=== PATIENT | male | born 1930 | race African-American/Black ===

== ENCOUNTER 2016-04-05 09:05 | Observation (INO) | payer MEDICARE, OTHER ==
[~2016-04-05] VITALS: Ht 170.2 cm; Wt 75.0 kg
[2016-04-05] VITALS (9 sets, daily range): BP systolic 127–146; BP diastolic 64–74; PULSE 49–60; RESP 17–18; TEMP 97.7–98.1; O2SAT 96–99
[~2016-04-05 09:05] MED LIST: ASPI81TA21 PO; ATOR20TA42 PO; CLOP75 PO; COLE5GRA PO; COZA100T PO; DORZ1SOL2 OU; ISOS30TA3 PO; LEVO.075 PO; METO50CR PO; PROC90TA PO; PROT40TA PO; RANO500 PO; REST0.05 EACH EYE
[2016-04-05] MEDS ORDERED: SODIUM CHLORIDE 0.9% FLUSH 5 ML FLUSH IVF PRN ×2 (09:30→12:15)
[2016-04-05] MEDS ORDERED: ASPIRIN 81 MG CHEW TAB PO ONE (09:30)
[2016-04-05] MEDS ORDERED: NIFE90TA2 PO (09:50)
[2016-04-05] MEDS ORDERED: ATOR20TA15 PO (09:50)
[2016-04-05] MEDS ORDERED: L-THPOW (09:50)
[2016-04-05] MEDS ORDERED: DORZ1SOL2 EACH EYE (09:50)
[2016-04-05] MEDS ORDERED: METO50TA PO (09:50)
[2016-04-05] MEDS ORDERED: ISOS30TA3 PO (09:50)
[2016-04-05] MEDS ORDERED: PLAV75TA29 PO (09:50)
[2016-04-05] MEDS ORDERED: LOSA100T PO (09:50)
[2016-04-05] MEDS ORDERED: LEVO75TA3 PO (09:50)
[2016-04-05] MEDS ORDERED: RANO500 PO (09:50)
[2016-04-05] MEDS ORDERED: REST0.05 EACH EYE (09:50)
[2016-04-05] MEDS ORDERED: PANT40TA3 PO (09:50)
[2016-04-05] MEDS ORDERED: ASPIRIN 81 MG CHEW TAB CHEW ONE ×2 (10:00→10:11)
--- NOTE | 2016-04-05 10:04 | RADRPT ---
EXAM DATE/TIME: 04/05/2016 09:42 [place] COMPARISON: CHEST SINGLE AP, August 29, 2015, 22:15. INDICATIONS : Left side chest pain. MEDICAL HISTORY : None. SURGICAL HISTORY : Pacemaker. ENCOUNTER: Initial ACUITY: 1 day PAIN SCORE: 5/10 LOCATION: Left chest FINDINGS: Portable AP view of the chest demonstrates a normal-sized cardiac silhouette. Left chest wall cardiac pacing device is present. Lungs are underinflated and there is atelectasis at the left lung base. No effusion, consolidation, or pneumothorax is seen. The bones and soft tissues demonstrate no acute fi nding. CONCLUSION: Mild underinflation with atelectasis at the left lung base. No acute finding is identified. Daniel Bower MD on April 05, 2016 at 10:02 Board Certified Radiologist. This report was verified electronically.
[2016-04-05 10:36] LABS: AUTOMATED NEUTROPHIL # 3.3 TH/MM3 (1.8-7.7); BASOPHIL % 0.8 % (0.0-2.0); EOSINOPHIL # 0.2 TH/MM3 (0-0.4); EOSINOPHIL % 3.4 % (0.0-4.0); HEMATOCRIT 37.4 % (39.0-51.0); HEMO FLAGS DIFF FINAL; LYMPH % 15.3 % (9.0-44.0); LYMPHOCYTE # 0.7 TH/MM3 (1.0-4.8); MEAN CELL VOLUME 89.7 FL (80.0-100.0); MEAN CORPUSCULAR HEMOGLOBIN 29.6 PG (27.0-34.0); MONO % 10.4 % (0.0-8.0); NEUT % 70.1 % (16.0-70.0); PLATELET COUNT 240 TH/MM3 (150-450); RED BLOOD COUNT 4.17 MIL/MM3 (4.50-5.90); RED CELL DISTRIBUTION WIDTH 15.3 % (11.6-17.2); WHITE BLOOD COUNT 4.7 TH/MM3 (4.0-11.0)
[2016-04-05 10:46] LABS: PROTHROMBIN TIME - PATIENT 11.5 SEC (9.8-11.6)
[2016-04-05 10:47] LABS: APTT (PATIENT) 28.9 SEC (24.3-30.1)
[2016-04-05 10:55] LABS: ALT (GPT) 26 U/L (12-78); ANION GAP 8 MEQ/L (5-15); AST (GOT) 27 U/L (15-37); BICARBONATE 23.3 MEQ/L (21.0-32.0); BLOOD UREA NITROGEN 20 MG/DL (7-18); CHLORIDE 106 MEQ/L (98-107); GLOMERULAR FILTRATION RATE 49 ML/MIN (>89); SODIUM (NA) 137 MEQ/L (136-145)
[2016-04-05 11:01] LABS: ALKALINE PHOSPHATASE 142 U/L (45-117); CREATINE KINASE 153 U/L (39-308); TOTAL BILIRUBIN ADULT 0.4 MG/DL (0.2-1.0)
[2016-04-05 11:13] LABS: CKMB 0.8 NG/ML (0.5-3.6)
[2016-04-05] MEDS ORDERED: PANTOPRAZOLE SOD 40 MG DELAYED RELEASE TAB PO SCH (12:15)
[2016-04-05] MEDS ORDERED: ACETAMINOPHEN 500 MG CPLT PO PRN (12:15)
[2016-04-05] MEDS ORDERED: ACETAMINOPHEN/HYDROcodone 325 MG/7.5 MG TAB PO PRN (12:15)
[2016-04-05] MEDS ORDERED: ONDANSETRON HCL 4 MG/2 ML VIAL IV PRN (12:15)
--- NOTE | 2016-04-05 13:25 | PD ---
HPI Chief Complaint: Chest Pain Time Seen by Provider: 09:49 Travel History International Travel<30 days: No Contact w/Intl Traveler<30days: No Traveled to known affect area: No History of Present Illness HPI Patient 85-year-old male presents with left-sided chest pain versus last night. Patient states he's been having this pain on and is followed by Dr. Pantoja. He states he had a stress test over a year ago which apparently was negative. Patient states he has been having minimal shortness of breath and the pain is at its worst but no nausea or vomiting. He does have a history of high blood pressure and high cholesterol. Denies history of diabetes. Patient states he does have a pacemaker in place because he has a history of symptomatically bradycardia. No history of having stents placed or coronary disease. PFSH Past Medical History Hx Anticoagulant Therapy: Yes (aspirin) Arthritis: Yes (FEET) Autoimmune Disease: No Heart Rhythm Problems: Yes (BRADYCARDIA) Cancer: No Cardiac Catheterization: No Cardiovascular Problems: Yes (pacekamker) High Cholesterol: No Congestive Heart Failure: No Diabetes: No Endocrine: Yes Gastrointestinal Disorders: No GERD: Yes Genitourinary: Yes (PT STATES HE HAS "WEAK KIDNEYS") Hypertension: Yes Immune Disorder: No Implanted Vascular Access Dvce: Yes Musculoskeletal: Yes Neurologic: No Psychiatric: No Reproductive: No Respiratory: No Immunizations Current: Yes Sickle Cell Disease: No Thyroid Disease: Yes (HYPO) Past Surgical History Abdominal Surgery: Yes (INGUINAL HERNIA REPAIR-KIRAN) Body Medical Devices: PACE MAKER Cardiac Surgery: No Coronary Artery Bypass Graft: No Ear Surgery: No Endocrine Surgery: No Eye Surgery: No Genitourinary Surgery: Yes (TURP 1994) Oral Surgery: Yes (TEETH PULLED UPPER) Pacemaker: Yes ([employer] [id number] SERIAL#[id number] IMPLANTED 11 NOV 2010) Prostatectomy: Yes (TURP) Thoracic Surgery: No Other Surgery: Yes Social History Alcohol Use: No Tobacco Use: No Substance Use: No Allergies-Medications (Allergen,Severity, Reaction): Coded Allergies: No Known Allergies (Verified , 04/05/16) Reported Meds & Prescriptions Reported Meds & Active Scripts Active Reported Restasis Opth Drops (Cyclosporine Opth Drops) 0.05% Emul 1 Drop EACH EYE BID Cosopt Opth Drops (Dorzolamide-Timolol Opth Drops) 22.3-6.8 Mg/Ml Soln 1 Drop EACH EYE BID Atorvastatin (Atorvastatin Calcium) 20 Mg Tab 20 Mg PO HS Pantoprazole (Pantoprazole Sodium) 40 Mg Tab 40 Mg PO DAILY Nifedipine ER (Nifedipine) 90 Mg Tab 90 Mg PO DAILY Metoprolol Tartrate 50 Mg Tab 50 Mg PO BID Losartan (Losartan Potassium) 100 Mg Tab 100 Mg PO DAILY Isosorbide Mononitrate ER (Isosorbide Mononitrate) 30 Mg Rickey 30 Mg PO DAILY Levothyroxine (Levothyroxine Sodium) 75 Mcg Tab 75 Mcg PO DAILY Plavix (Clopidogrel Bisulfate) 75 Mg Tab 75 Mg PO DAILY Ranexa ER 12 HR (Ranolazine) 500 Mg Tab 500 Mg PO BID Review of Systems Except as stated in HPI: all other systems reviewed are Neg Physical Exam Narrative GENERAL: Well-developed well-nourished in no apparent distress, quite pleasant demeanor. SKIN: Warm and dry. HEAD: Atraumatic. Normocephalic. EYES: Pupils equal and round. No scleral icterus. No injection or drainage. ENT: No nasal bleeding or discharge. Mucous membranes pink and moist. NECK: Trachea midline. No JVD. CARDIOVASCULAR: Regular rate and rhythm. No murmur appreciated. 2+ bilateral equal pulses in all 4 extremities. RESPIRATORY: No accessory muscle use. Clear to auscultation. Breath sounds equal bilaterally. GASTROINTESTINAL: Abdomen soft, non-tender, nondistended. Hepatic and splenic margins not palpable. MUSCULOSKELETAL: No obvious deformities. No clubbing. No cyanosis. No edema. NEUROLOGICAL: Awake and alert. No obvious cranial nerve deficits. Motor grossly within normal limits. Normal speech. PSYCHIATRIC: Appropriate mood and affect; insight and judgment normal. Data Data Last Documented VS Vital Signs Date Time Temp Pulse Resp B/P Pulse Ox O2 Delivery O2 Flow Rate FiO2 04/05/16 09:52 50 146/74 04/05/16 09:52 99 Room Air Orders Electrocardiogram (04/05/16 ) B-Type Natriuretic Peptide (04/05/16 09:21) Ckmb (Isoenzyme) Profile (04/05/16 09:21) Complete Blood Count With Diff (04/05/16 09:21) Comprehensive Metabolic Panel (04/05/16 09:21) Magnesium (Mg) (04/05/16 09:21) Prothrombin Time / Inr (Pt) (04/05/16 09:21) Act Partial Throm Time (Ptt) (04/05/16 09:21) Troponin I (04/05/16 09:21) Chest, Single Ap (04/05/16 09:21) Ecg Monitoring (04/05/16 09:21) Bilateral Bp Monitoring (04/05/16 09:21) Iv Access Insert/Monitor (04/05/16 09:21) Oximetry (04/05/16 09:21) Oxygen Administration (04/05/16 09:21) Aspirin Chew (Aspirin Chew) (04/05/16 09:30) Sodium Chloride 0.9% Flush (Ns Flush) (04/05/16 09:30) Aspirin Chew (Aspirin Chew) (04/05/16 10:00) Aspirin Chew (Aspirin Chew) (04/06/16 09:00) Aspirin Chew (Aspirin Chew) (04/05/16 10:11) CKMB (04/05/16 09:50) CKMB% (04/05/16 09:50) Admit Order (Ed Use Only) (04/05/16 ) Labs Laboratory Tests Test 04/05/16 09:50 White Blood Count 4.7 TH/MM3 Red Blood Count 4.17 MIL/MM3 Hemoglobin 12.4 GM/DL Hematocrit 37.4 % Mean Corpuscular Volume 89.7 FL Mean Corpuscular Hemoglobin 29.6 PG Mean Corpuscular Hemoglobin 33.0 % Concent Red Cell Distribution Width 15.3 % Platelet Count 240 TH/MM3 Mean Platelet Volume 8.5 FL Neutrophils (%) (Auto) 70.1 % Lymphocytes (%) (Auto) 15.3 % Monocytes (%) (Auto) 10.4 % Eosinophils (%) (Auto) 3.4 % Basophils (%) (Auto) 0.8 % Neutrophils # (Auto) 3.3 TH/MM3 Lymphocytes # (Auto) 0.7 TH/MM3 Monocytes # (Auto) 0.5 TH/MM3 Eosinophils # (Auto) 0.2 TH/MM3 Basophils # (Auto) 0.0 TH/MM3 CBC Comment DIFF FINAL Differential Comment Prothrombin Time 11.5 SEC Prothromb Time International 1.0 RATIO Ratio Activated Partial 28.9 SEC Thromboplast Time Sodium Level 137 MEQ/L Potassium Level 4.0 MEQ/L Chloride Level 106 MEQ/L Carbon Dioxide Level 23.3 MEQ/L Anion Gap 8 MEQ/L Blood Urea Nitrogen 20 MG/DL Creatinine 1.61 MG/DL Estimat Glomerular Filtration 49 ML/MIN Rate Random Glucose 118 MG/DL Calcium Level 9.0 MG/DL Magnesium Level 2.0 MG/DL Total Bilirubin 0.4 MG/DL Aspartate Amino Transf 27 U/L (AST/SGOT) Alanine Aminotransferase 26 U/L (ALT/SGPT) Alkaline Phosphatase 142 U/L Total Creatine Kinase 153 U/L Creatine Kinase MB 0.8 NG/ML Troponin I LESS THAN 0.02 NG/ML B-Type Natriuretic Peptide 74 PG/ML Total Protein 8.1 GM/DL Albumin 3.9 GM/DL MDM Medical Decision Making Medical Screen Exam Complete: Yes Emergency Medical Condition: Yes Interpretation(s) EKG is ventricular paced rhythm. Differential Diagnosis ACS, LA, GERD, chest wall pain, dissection highly unlikely. Narrative Course Patient room number spell, by arrival into the emergency department he is not currently having any more chest pain. He did take a baby aspirin this morning and we have run at up to a full dose aspirin. Patient's chest x-ray shows no acute cardio pulmonary abnormality, troponin negative, EKG shows a ventricular paced rhythm. Discussed with the patient needs to consider having further workup including a stress test as he has not had one in some time. He is agreeable to this course of action. We'll be placing the chest pain center. Diagnosis Primary Impression: Chest pain Qualified Code: R07.9 - Chest pain, unspecified type Admitting Information Admitting Physician Requests: Observation Condition: Stable Miguel Ortega MD Apr 05, 2016 13:25
--- NOTE | 2016-04-05 14:30 | EKG ---
Date Performed: 04/05/2016 Time Performed: 09:19:02 PTAGE: 85 years EKG: ELECTRONIC VENTRICULAR PACEMAKER ABNORMAL RHYTHM ECG PREVIOUS TRACING : 02/24/2016 11.28 DOCTOR: Gabriele Mensah Interpretating Date/Time 04/05/2016 14:30:11
--- NOTE | 2016-04-05 14:40 | EKG ---
Date Performed: 04/05/2016 Time Performed: 12:58:01 PTAGE: 85 years EKG: ELECTRONIC VENTRICULAR PACEMAKER ABNORMAL RHYTHM ECG PREVIOUS TRACING : 08/30/2015 04.50 DOCTOR: Gabriele Mensah Interpretating Date/Time 04/05/2016 14:38:57
[2016-04-05 14:46] LABS: CREATINE KINASE 130 U/L (39-308)
[2016-04-05 15:19] LABS: CKMB 0.8 NG/ML (0.5-3.6)
--- NOTE | 2016-04-05 16:23 | HHI.DCPOC ---
Discharge Care Plan Diagnosis: (1) Chest pain (2) Pacemaker (3) HTN (hypertension) (4) HLD (hyperlipidemia) (5) GERD (gastroesophageal reflux disease) (6) Hypothyroidism (7) CKD (chronic kidney disease), stage II Goals to Promote Your Health * To prevent worsening of your condition and complications * To maintain your health at the optimal level Directions to Meet Your Goals Take your medications as prescribed Follow your dietary instruction Follow activity as directed Keep your appointments as scheduled Take your immunizations and boosters as scheduled If your symptoms worsen call your PCP, if no PCP go to Urgent Care Center or Emergency Room Smoking is Dangerous to Your Health. Avoid second hand smoke Call the 24-hour hour crisis hotline for domestic abuse at [facility] Apr 05, 2016 16:23
[2016-04-05 17:18] LABS: CREATINE KINASE 120 U/L (39-308)
[2016-04-05 17:34] LABS: CKMB 0.8 NG/ML (0.5-3.6)
[2016-04-05] MEDS ORDERED: ATORVASTATIN 20 MG TAB PO SCH (21:00)
[2016-04-05] MEDS ORDERED: METOPROLOL TARTRATE 50 MG TAB PO SCH (21:00)
[2016-04-05] MEDS ORDERED: RANOLAZINE 500 MG EXTENDED RELEASE TAB PO SCH (21:00)
[2016-04-05] MEDS ORDERED: SODIUM CHLORIDE 0.9% FLUSH 5 ML FLUSH IVF SCH (21:00)
[2016-04-06] MEDS ORDERED: LEVOTHYROXINE SODIUM 75 MCG TAB PO SCH (06:00)
[2016-04-06] MEDS ORDERED: ISOSORBIDE MONONITRATE 30 MG TAB PO SCH (07:00)
[2016-04-06] MEDS ORDERED: NIFEdipine 90 MG SUSTAINED RELEASE TAB PO SCH (09:00)
[2016-04-06] MEDS ORDERED: LOSARTAN 50 MG TAB PO SCH (09:00)
[2016-04-06] MEDS ORDERED: ASPIRIN 325 MG TAB PO SCH (09:00)
[2016-04-06] MEDS ORDERED: CLOPIDOGREL 75 MG TAB PO SCH (09:00)
[2016-04-06] MEDS ORDERED: ASPIRIN 81 MG CHEW TAB CHEW SCH (09:00)
--- NOTE | 2016-04-06 09:34 | MH ---
cc: GABRIELE MICHELLE DATE OF ADMISSION: 04/05/2016 CHIEF COMPLAINT: Chest pain HISTORY OF PRESENT ILLNESS This is an 85-year-old male who presents to the emergency department via private vehicle with his with a complaint of two days of intermittent left-sided chest discomfort. He describes it as a sharp discomfort. It lasts for a minute or less. This happens a few times each day. He found nothing to bring on the discomfort. He has had no associated shortness of breath, nausea or diaphoresis. He has states that he has had a pacemaker since 2010 and had it recently interrogated by Dr. Erickson's office three weeks ago and it was okay. He believes the last stress test was last year but does not know the results. Denies any recent illnesses. Denies any recent travel. PAST MEDICAL HISTORY: 1. Hypertension. 2. Hyperlipidemia. 3. Supraventricular tachycardia. 4. Symptomatic bradycardia with pacemaker inserted in 2010. 5. Benign prostate hypertrophy with history of TURP. 6. Hypothyroidism. 7. Chronic kidney disease. 8. Gastroesophageal reflux disease (GERD). 9. Arthritis. 10. Denies any knowledge of coronary artery disease. He states he cannot recall ever having a heart catheterization. FAMILY HISTORY: History of coronary artery disease. SOCIAL HISTORY: Does not smoke, drink alcohol or use illicit drugs. PAST SURGICAL HISTORY: Noncontributory. ALLERGIES: NO KNOWN DRUG ALLERGIES. MEDICATIONS: Medications include: 1. Losartan. 2. Restasis. 3. Metoprolol. 4. Cosopt ophthalmic eye drops. 5. Ranexa. 6. Nifedipine. 7. Atorvastatin. 8. Isosorbide. 9. Plavix. 10. Protonix. 11. Levothyroxine. REVIEW OF SYSTEMS: GENERAL: Denies fevers or chills. Denies recent illnesses. HEAD, EYES, EARS, NOSE, THROAT: Denies headache, earache, sore throat, difficulty swallowing. CARDIOVASCULAR: Describes the discomfort as mentioned above. Denies diaphoresis. Denies sensation of heart beating rapidly or irregularly. Denies syncope. RESPIRATORY: Denies shortness of breath or inspirational chest discomfort. Denies coughing, wheezing or hemoptysis. GI: Denies nausea, vomiting, diarrhea, abdominal pain or blood in the stool. MUSCULOSKELETAL: Denies joint pain or edema. Denies calf pain or edema. NEUROVASCULAR: Denies headache or dizziness. ENDOCRINE: Denies polyuria or polydipsia. HEMATOLOGIC: Denies easy bruising. SKIN: Denies rash or itching. PHYSICAL EXAMINATION: VITAL SIGNS: The vital signs in the emergency department initially included a blood pressure of 146/74, heart rate 50, pulse oximetry 99% on room air. I will have more vitals taken at this time. HEAD, EYES, EARS, NOSE, THROAT: Head is atraumatic and normocephalic. NECK: Neck is supple without lymphadenopathy. Trachea is midline. No JVD or carotid bruit. CARDIOVASCULAR: Regular rate and rhythm without murmur, gallop or rub. RESPIRATORY: The lungs are clear to auscultation bilaterally. No wheezing, rales or rhonchi. There is no reproducible chest wall discomfort. No use of accessory muscles. GI: Abdomen is nontender and nondistended and bowel sounds are normal. No guarding or rebound. No obvious pulsatile mass or bruit. No CVA tenderness. Strong femoral pulses bilaterally. MUSCULOSKELETAL: The patient is moving upper and lower extremities freely. No joint tenderness or edema. No calf tenderness or edema. No Homans' sign. Strong pulses in upper and lower extremities. NEUROVASCULAR: The patient is alert and oriented. Cranial nerves II through XII are grossly intact. No focal deficits and speech is clear. SKIN: No rashes and turgor is normal. LABS: CBC is unremarkable. Coagulation studies are unremarkable. Complete metabolic panel has a BUN elevated at 20, creatinine elevated at 1.61, GFR decreased at 49, glucose elevated mildly at 118. Alkaline phosphatase is elevated at 142, otherwise unremarkable comprehensive metabolic panel. First set of cardiac enzymes is normal. BNP is normal at 74. IMAGING STUDIES: Single-view chest x-ray read by the radiologist as: "Mild under- inflation with atelectasis at the left lung base. No acute findings. A pacemaker is in place. EKGS: The initial EKG is ventricular paced. ASSESSMENT AND PLAN: 1. Chest pain. The discomfort does appear to be atypical. He will have serial cardiac enzymes and EKGs for ruling out purpose. He will be seen by Dr. Michelle in the chest pain center. At this time, the patient does not want to have any further imaging or cardiac testing other than labs obtained. He states he would rather follow with Dr. Erickson and states he wants him to be stress tested. So if his troponins were to stay normal, he would likely be discharged home later this afternoon or early this evening with instructions follow back with Dr. Erickson but with instructions also to return if his symptoms were to recur. 2. Hypertension. Continue current medications. 3. Hyperlipidemia. Continue current medications. 4. Pacemaker. The patient will continue to follow up with Dr. Erickson. He recently had it interrogated three weeks ago and it was okay. 5. Benign prostate hypertrophy. Continue current medications. 6. Hypothyroidism. Continue current medications. 7. Chronic kidney disease. Continue to follow up with his physician. 8. Gastroesophageal reflux disease (GERD). Continue his Protonix. The patient is stable at this time. He is agreeable with this plan. Dictated by [facility] PA-C. Gabriele Michelle MD [facility]/MER /12:23 PM /9:33 AM
--- NOTE | 2016-04-06 12:10 | EKG ---
Date Performed: 04/05/2016 Time Performed: 15:36:04 PTAGE: 85 years EKG: ELECTRONIC VENTRICULAR PACEMAKER ABNORMAL RHYTHM ECG PREVIOUS TRACING : 04/05/2016 12.58 Since previous tracing, no significant change noted DOCTOR: Edgar Garcia Interpretating Date/Time 04/06/2016 12:09:18
== END 2016-04-05 18:52 | disposition home or self-care (01) ==
LOC: NEPA 09:05 → NEDA 11:47 → NEPHCDU 14:29
PROVIDERS: ADMIT Family Medicine; ATTEND Family Medicine
DX: R07.9 Chest pain, unspecified (principal); I12.9 Hypertensive chronic kidney disease with stage 1 through stage 4 chronic kidney disease, or unspecified chronic kidney disease; N18.9 Chronic kidney disease, unspecified; E78.5 Hyperlipidemia, unspecified; R94.31 Abnormal electrocardiogram [ECG] [EKG]; E03.9 Hypothyroidism, unspecified; K21.9 Gastro-esophageal reflux disease without esophagitis; E78.00 Pure hypercholesterolemia, unspecified; M19.90 Unspecified osteoarthritis, unspecified site; Z95.0 Presence of cardiac pacemaker
CPT/HCPCS: 71010; 80053; 82550; 82552; 83735; 83880; 84443; 84484; 85025; 85610; 85730; 93005; 99285; G0378

== ENCOUNTER 2016-05-15 18:39 | Emergency (ER) | payer MEDICARE, OTHER ==
[~2016-05-15] VITALS: Ht 170.2 cm; Wt 75.0 kg
[~2016-05-15 18:39] MED LIST changes: -ASPI81TA21 PO; +ATOR20TA15 PO; -ATOR20TA42 PO; -CLOP75 PO; -COLE5GRA PO; -COZA100T PO; +DORZ1SOL2 EACH EYE; -DORZ1SOL2 OU; -LEVO.075 PO; +LEVO75TA3 PO; +LOSA100T PO; -METO50CR PO; +METO50TA PO; +NIFE90TA2 PO; +PANT40TA3 PO; +PLAV75TA29 PO; -PROC90TA PO; -PROT40TA PO
[2016-05-15 18:41] VITALS: BP 150/78; PULSE 66; RESP 16; TEMP 98; O2SAT 97
--- NOTE | 2016-05-15 20:55 | PD ---
HPI Chief Complaint: Laceration/Skin Injury Time Seen by Provider: 20:53 Travel History International Travel<30 days: No Contact w/Intl Traveler<30days: No Traveled to known affect area: No History of Present Illness HPI 86-year-old black male presents emergency Department with a small skin laceration to the tip of his right thumb which occurred when he was cutting his toenails with apparent scissors. He has had some persistent bleeding and he was concerned because he was on blood thinners. He denies any numbness, tingling or weakness. Pain is mild. PFSH Past Medical History Hx Anticoagulant Therapy: Yes (aspirin) Arthritis: Yes (FEET) Autoimmune Disease: No Heart Rhythm Problems: Yes (BRADYCARDIA) Cancer: No Cardiac Catheterization: No Cardiovascular Problems: Yes (PACEMAKER) High Cholesterol: No Congestive Heart Failure: No Diabetes: No Diminished Hearing: No Endocrine: Yes Gastrointestinal Disorders: No GERD: Yes Genitourinary: Yes Hypertension: Yes Immune Disorder: No Implanted Vascular Access Dvce: Yes Musculoskeletal: Yes Neurologic: No Psychiatric: No Reproductive: No Respiratory: No Immunizations Current: Yes Sickle Cell Disease: No Thyroid Disease: Yes (HYPO) Tetanus Vaccination: > 5 Years Past Surgical History Abdominal Surgery: Yes (INGUINAL HERNIA REPAIR-KIRAN) Body Medical Devices: PACE MAKER Cardiac Surgery: No Coronary Artery Bypass Graft: No Ear Surgery: No Endocrine Surgery: No Eye Surgery: No Genitourinary Surgery: Yes (TURP 1994) Oral Surgery: Yes (TEETH PULLED UPPER) Pacemaker: Yes ([employer] [id number] SERIAL#[id number] IMPLANTED 11 NOV 2010) Prostatectomy: Yes (TURP) Thoracic Surgery: No Other Surgery: Yes Social History Alcohol Use: No Tobacco Use: No Substance Use: No Allergies-Medications (Allergen,Severity, Reaction): Coded Allergies: No Known Allergies (Verified , 04/05/16) Reported Meds & Prescriptions Reported Meds & Active Scripts Active Reported Restasis Opth Drops (Cyclosporine Opth Drops) 0.05% Emul 1 Drop EACH EYE BID Cosopt Opth Drops (Dorzolamide-Timolol Opth Drops) 22.3-6.8 Mg/Ml Soln 1 Drop EACH EYE BID Atorvastatin (Atorvastatin Calcium) 20 Mg Tab 20 Mg PO HS Pantoprazole (Pantoprazole Sodium) 40 Mg Tab 40 Mg PO DAILY Nifedipine ER (Nifedipine) 90 Mg Tab 90 Mg PO DAILY Metoprolol Tartrate 50 Mg Tab 50 Mg PO BID Losartan (Losartan Potassium) 100 Mg Tab 100 Mg PO DAILY Isosorbide Mononitrate ER (Isosorbide Mononitrate) 30 Mg Rickey 30 Mg PO DAILY Levothyroxine (Levothyroxine Sodium) 75 Mcg Tab 75 Mcg PO DAILY Plavix (Clopidogrel Bisulfate) 75 Mg Tab 75 Mg PO DAILY Ranexa ER 12 HR (Ranolazine) 500 Mg Tab 500 Mg PO BID Review of Systems Except as stated in HPI: all other systems reviewed are Neg Physical Exam Narrative GENERAL: This is a well-nourished, well-developed patient, in no apparent distress. SKIN: No rashes, ecchymoses or lesions. Warm and dry. The patient has a 4 x 4 millimeter skin avulsion on the volar pad of the right thumb. There is a scant amount of weeping. No deep injury. HEAD: Atraumatic. Normocephalic. EYES: PERRL, EOMI, no discharge or injection. No scleral icterus. EARS: Clear NOSE: Nasal turbinates appear normal. THROAT: Mucosa pink and moist. Airway patent. NECK: Trachea midline. supple, moves head freely. LUNGS: Clear to auscultation. CV: Regular in rhythm. ABDOMEN: Soft nontender. EXT: No clubbing cyanosis or edema. Data Data Last Documented VS Vital Signs Date Time Temp Pulse Resp B/P Pulse Ox O2 Delivery O2 Flow Rate FiO2 05/15/16 18:41 98.0 66 16 150/78 97 Room Air MDM Medical Decision Making Medical Screen Exam Complete: Yes Emergency Medical Condition: Yes Medical Record Reviewed: Yes Differential Diagnosis MDM: High Differential diagnoses: Fracture, sprain, strain, dislocation, contusion, neurovascular injury Narrative Course The patient's hand is evaluated a quick clot is applied. Bleeding has subsided. Dressing applied. Diagnosis Primary Impression: minor right thumb laceration Patient Instructions: General Instructions Additional Instructions: Rest. Elevation. Keep your dressing clean and dry for the next 2-3 days. He may remove it then perform local wound care with soap, water, Neosporin. Follow-up your doctor next week as needed. Med/Other Pt SpecificInfo: Wound Care Disposition: 01 DISCHARGE HOME Condition: Stable Ramin Perrin May 15, 2016 20:55
[2016-05-15] MEDS ORDERED: TETANUS/DIPHTHERIA TOXOID ADULT 0.5 ML VIAL IM ONE (21:00)
== END 2016-05-15 21:11 | disposition home or self-care (01) ==
LOC: NEPB 18:39
DX: S61.011A Laceration without foreign body of right thumb without damage to nail, initial encounter (principal); W27.2XXA Contact with scissors, initial encounter; Y93.E8 Activity, other personal hygiene; Z23 Encounter for immunization
CPT/HCPCS: 12001; 90471; 90714

== ENCOUNTER 2016-07-24 18:32 | Emergency (ER) | payer MEDICARE, OTHER ==
[~2016-07-24] VITALS: Ht 170.2 cm; Wt 72.5 kg
[2016-07-24 18:34] VITALS: BP 136/72; PULSE 60; RESP 20; TEMP 97.7; O2SAT 98
--- NOTE | 2016-07-24 18:41 | PD ---
Physical Exam Date Seen by Provider: July 24, 2016 Time Seen by Provider: 18:38 Narrative 86 YOBM C/O DIZZINESS FOR 2 HRS. NO ASSOCIATED N/V, FOCAL WEAKNESS. NO VITALE, NO VISUAL CHANGES, NO CP OR SOB. H/O PACER AND PLAVIX VSS wating for bed asignment Data Data Last Documented VS Vital Signs Date Time Temp Pulse Resp B/P Pulse Ox O2 Delivery O2 Flow Rate FiO2 07/24/16 18:34 97.7 60 20 136/72 98 Room Air [facility] Medical Record Reviewed: No Supervised Visit with MADY: Ramin Martínez July 24, 2016 18:41
[2016-07-24] MEDS ORDERED: MECLIZINE HCL 25 MG TAB PO ONE (19:00)
[2016-07-24] MEDS ORDERED: SODIUM CHLORID 0.9% 500 ML INJ 500 ML IV ONE (19:00)
--- NOTE | 2016-07-24 19:00 | PD ---
HPI Chief Complaint: Dizziness Time Seen by Provider: 18:49 Travel History International Travel<30 days: No Contact w/Intl Traveler<30days: No Traveled to known affect area: No History of Present Illness HPI 86-year-old male complains of dizziness. Patient states that symptoms started 2 hours ago. Patient states that the dizziness is worse with head movement. Patient denies any headache. Patient denies any visual change. Patient denies any chest pain or shortness of breath. Patient denies abdominal pain. Denies focal weakness or numbness of extremity. Patient denies any recent head injury. Patient status post pacemaker placement. Patient is on Plavix. Patient has history hypertension, hyperlipidemia. Patient denies history of diabetes. Patient is a nonsmoker. Patient denies any history of TIA or CVA. PFSH Past Medical History Hx Anticoagulant Therapy: Yes Arthritis: Yes (FEET) Autoimmune Disease: No Heart Rhythm Problems: Yes (BRADYCARDIA) Cancer: No Cardiac Catheterization: No Cardiovascular Problems: Yes (PACEMAKER) High Cholesterol: No Congestive Heart Failure: No Diabetes: No Diminished Hearing: No Endocrine: Yes Gastrointestinal Disorders: No GERD: Yes Genitourinary: Yes Hypertension: Yes Immune Disorder: No Implanted Vascular Access Dvce: Yes Musculoskeletal: Yes Neurologic: No Psychiatric: No Reproductive: No Respiratory: No Immunizations Current: Yes Sickle Cell Disease: No Thyroid Disease: Yes (HYPO) Past Surgical History Abdominal Surgery: Yes (INGUINAL HERNIA REPAIR-KIRAN) Body Medical Devices: PACE MAKER Cardiac Surgery: No Coronary Artery Bypass Graft: No Ear Surgery: No Endocrine Surgery: No Eye Surgery: No Genitourinary Surgery: Yes (TURP 1994) Oral Surgery: Yes (TEETH PULLED UPPER) Pacemaker: Yes ([employer] [id number] SERIAL#[id number] IMPLANTED 11 NOV 2010) Prostatectomy: Yes (TURP) Thoracic Surgery: No Other Surgery: Yes Social History Alcohol Use: No Tobacco Use: No Substance Use: No Allergies-Medications (Allergen,Severity, Reaction): Coded Allergies: No Known Allergies (Verified , 04/05/16) Reported Meds & Prescriptions Reported Meds & Active Scripts Active Reported Restasis Opth Drops (Cyclosporine Opth Drops) 0.05% Emul 1 Drop EACH EYE BID Cosopt Opth Drops (Dorzolamide-Timolol Opth Drops) 22.3-6.8 Mg/Ml Soln 1 Drop EACH EYE BID Atorvastatin (Atorvastatin Calcium) 20 Mg Tab 20 Mg PO HS Pantoprazole (Pantoprazole Sodium) 40 Mg Tab 40 Mg PO DAILY Nifedipine ER (Nifedipine) 90 Mg Tab 90 Mg PO DAILY Metoprolol Tartrate 50 Mg Tab 50 Mg PO BID Losartan (Losartan Potassium) 100 Mg Tab 100 Mg PO DAILY Isosorbide Mononitrate ER (Isosorbide Mononitrate) 30 Mg Rickey 30 Mg PO DAILY Levothyroxine (Levothyroxine Sodium) 75 Mcg Tab 75 Mcg PO DAILY Plavix (Clopidogrel Bisulfate) 75 Mg Tab 75 Mg PO DAILY Ranexa ER 12 HR (Ranolazine) 500 Mg Tab 500 Mg PO BID Review of Systems General / Constitutional: No: Fever Eyes: No: Visual changes HENT: Positive: Lightheadedness, No: Headaches Cardiovascular: No: Chest Pain or Discomfort Respiratory: No: Shortness of Breath Gastrointestinal: No: Abdominal Pain Genitourinary: No: Dysuria Musculoskeletal: No: Pain Skin: No Rash Neurologic: No: Weakness Psychiatric: No: Depression Endocrine: No: Polydipsia Hematologic/Lymphatic: No: Easy Bruising Physical Exam Narrative GENERAL: Well-nourished, well-developed patient. SKIN: Focused skin assessment warm/dry. HEAD: Normocephalic. EYES: No scleral icterus. No injection or drainage. NECK: Supple, trachea midline. No JVD or lymphadenopathy. CARDIOVASCULAR: Regular rate and rhythm without murmurs, gallops, or rubs. RESPIRATORY: Breath sounds equal bilaterally. No accessory muscle use. GASTROINTESTINAL: Abdomen soft, non-tender, nondistended. MUSCULOSKELETAL: No cyanosis, or edema. BACK: Nontender without obvious deformity. No CVA tenderness. Neurologic exam: Patient is awake and alert oriented 3. No obvious focal neurological deficit. Data Data Last Documented VS Vital Signs Date Time Temp Pulse Resp B/P Pulse Ox O2 Delivery O2 Flow Rate FiO2 07/24/16 20:33 62 98 Room Air 07/24/16 19:27 16 130/64 07/24/16 18:34 97.7 Orders Electrocardiogram (07/24/16 18:56) Complete Blood Count With Diff (07/24/16 18:56) Basic Metabolic Panel (Bmp) (07/24/16 18:56) Prothrombin Time / Inr (Pt) (07/24/16 18:56) Act Partial Throm Time (Ptt) (07/24/16 18:56) Urinalysis - C+S If Indicated (07/24/16 18:56) Ct Brain W/O Iv Contrast(Rout) (07/24/16 18:56) Iv Access Insert/Monitor (07/24/16 18:56) Ecg Monitoring (07/24/16 18:56) Oximetry (07/24/16 18:56) Sodium Chlorid 0.9% 500 Ml Inj (Ns 500 M (07/24/16 19:00) Meclizine (Antivert) (07/24/16 19:00) Labs Laboratory Tests Test 07/24/16 07/24/16 07/24/16 19:40 20:08 20:56 White Blood Count 4.9 TH/MM3 Red Blood Count 4.06 MIL/MM3 Hemoglobin 12.3 GM/DL Hematocrit 35.9 % Mean Corpuscular Volume 88.6 FL Mean Corpuscular Hemoglobin 30.2 PG Mean Corpuscular Hemoglobin 34.1 % Concent Red Cell Distribution Width 15.3 % Platelet Count 219 TH/MM3 Mean Platelet Volume 8.0 FL Neutrophils (%) (Auto) 70.1 % Lymphocytes (%) (Auto) 15.4 % Monocytes (%) (Auto) 9.9 % Eosinophils (%) (Auto) 3.5 % Basophils (%) (Auto) 1.1 % Neutrophils # (Auto) 3.4 TH/MM3 Lymphocytes # (Auto) 0.8 TH/MM3 Monocytes # (Auto) 0.5 TH/MM3 Eosinophils # (Auto) 0.2 TH/MM3 Basophils # (Auto) 0.1 TH/MM3 CBC Comment DIFF FINAL Differential Comment Prothrombin Time 11.4 SEC Prothromb Time International 1.0 RATIO Ratio Activated Partial 26.1 SEC Thromboplast Time Urine Color YELLOW Urine Turbidity CLEAR Urine pH 6.5 Urine Specific [place] 1.014 Urine Protein NEG mg/dL Urine Glucose (UA) NEG mg/dL Urine Ketones NEG mg/dL Urine Occult Blood NEG Urine Nitrite NEG Urine Bilirubin NEG Urine Urobilinogen LESS THAN 2.0 MG/DL Urine Leukocyte Esterase NEG Urine RBC LESS THAN 1 /hpf Urine WBC LESS THAN 1 /hpf Microscopic Urinalysis Comment CULT NOT INDICATED Sodium Level 140 MEQ/L Potassium Level 4.1 MEQ/L Chloride Level 108 MEQ/L Carbon Dioxide Level 22.9 MEQ/L Anion Gap 9 MEQ/L Blood Urea Nitrogen 31 MG/DL Creatinine 1.57 MG/DL Estimat Glomerular Filtration 51 ML/MIN Rate Random Glucose 96 MG/DL Calcium Level 8.3 MG/DL MDM Medical Decision Making Medical Screen Exam Complete: Yes Emergency Medical Condition: Yes Interpretation(s) 21:27 PM. Last Impressions Head CT 07/24/16 1856 Signed Impressions: Service Date/Time: Sunday, July 24, 2016 20:10 - CONCLUSION: Normal examination. Daniel Angel MD 21:27 PM. CBC within normal limit. BUN 31. Creatinine 1.57. UA is negative. Differential Diagnosis Differential diagnosis including vertigo, TIA, CVA, electrolyte abnormality, dehydration. Narrative Course 86-year-old male with dizziness. Normal saline solution 500 cc IV bolus. Meclizine 25 mg by mouth. Diagnosis Primary Impression: Dizziness Additional Impression: Chronic kidney disease Qualified Code: N18.3 - Stage 3 chronic kidney disease Patient Instructions: General Instructions Additional Instructions: Meclizine as needed for dizziness. Follow-up with personal physician. Return if persistent problem or worse. Med/Other Pt SpecificInfo: Prescription(s) given Scripts Meclizine 25 Mg Tab25 Mg PO TID PRN (VERTIGO) #21 TAB Ref 0 Prov:Juliano Bennett MD 07/24/16 Disposition: 01 DISCHARGE HOME Condition: Stable Juliano Bennett MD July 24, 2016 19:00
[2016-07-24 19:27] VITALS: BP 130/64; PULSE 55; RESP 16; O2SAT 95
[2016-07-24 19:55] LABS: AUTOMATED NEUTROPHIL # 3.4 TH/MM3 (1.8-7.7); BASOPHIL # 0.1 TH/MM3 (0-0.2); BASOPHIL % 1.1 % (0.0-2.0); EOSINOPHIL # 0.2 TH/MM3 (0-0.4); EOSINOPHIL % 3.5 % (0.0-4.0); HEMATOCRIT 35.9 % (39.0-51.0); HEMO FLAGS DIFF FINAL; LYMPH % 15.4 % (9.0-44.0); LYMPHOCYTE # 0.8 TH/MM3 (1.0-4.8); MEAN CELL VOLUME 88.6 FL (80.0-100.0); MEAN CORPUSCULAR HEMOGLOBIN 30.2 PG (27.0-34.0); MEAN CORPUSCULAR HGB CONC 34.1 % (32.0-36.0); MONO % 9.9 % (0.0-8.0); NEUT % 70.1 % (16.0-70.0); PLATELET COUNT 219 TH/MM3 (150-450); RED BLOOD COUNT 4.06 MIL/MM3 (4.50-5.90); RED CELL DISTRIBUTION WIDTH 15.3 % (11.6-17.2); WHITE BLOOD COUNT 4.9 TH/MM3 (4.0-11.0)
[2016-07-24 20:06] LABS: APTT (PATIENT) 26.1 SEC (24.3-30.1); PROTHROMBIN TIME - PATIENT 11.4 SEC (9.8-11.6)
--- NOTE | 2016-07-24 20:31 | RADRPT ---
EXAM DATE/TIME: 07/24/2016 20:10 [facility] COMPARISON: CT BRAIN W/O CONTRAST, September 12, 2012, 20:36. INDICATIONS : Dizziness. RADIATION DOSE: 56.35 CTDIvol (mGy) MEDICAL HISTORY : Cerebrovascular disease. SURGICAL HISTORY : Pacemaker. Inguinal hernia repair. ENCOUNTER: Initial ACUITY: 1 day PAIN SCALE: 0/10 LOCATION: cranial TECHNIQUE: Multiple contiguous axial images were obtained of the head. Using automated exposure control and adj ustment of the mA and/or kV according to patient size, radiation dose was kept as low as reasonably a chievable to obtain optimal diagnostic quality images. FINDINGS: CEREBRUM: The ventricles are normal for age. No evidence of midline shift, mass lesion, hemorrhage or acute in farction. No extra-axial fluid collections are seen. POSTERIOR FOSSA: The cerebellum and brainstem are intact. The 4th ventricle is midline. The cerebellopontine angle i s unremarkable. EXTRACRANIAL: The visualized portion of the orbits is intact. SKULL: The calvaria is intact. No evidence of skull fracture. CONCLUSION: Normal examination. Daniel Angel MD on July 24, 2016 at 20:28 Board Certified Radiologist. This report was verified electronically.
[2016-07-24 20:33] VITALS: PULSE 62; O2SAT 98
[2016-07-24 20:38] LABS: BLOOD, URINE NEG (NEG); GLUCOSE,URINE NEG (NEG); KETONE, URINE NEG (NEG); NITRITE,URINE NEG (NEG); PH, URINE 6.5 (5.0-8.5); URINE COLOR YELLOW (YELLW/STRAW)
[2016-07-24 20:52] LABS: COMMENT (UR) CULT NOT INDICATED; CULTURE IF INDICATED CULT NOT INDICATED
[2016-07-24 21:21] LABS: BICARBONATE 22.9 MEQ/L (21.0-32.0); POTASSIUM 4.1 MEQ/L (3.5-5.1)
[2016-07-24] MEDS ORDERED: MECL-62 PO (21:33)
[2016-07-24 21:50] VITALS: BP 137/65
--- NOTE | 2016-07-25 13:52 | EKG ---
Date Performed: 07/24/2016 Time Performed: 19:25:10 PTAGE: 86 years EKG: ELECTRONIC VENTRICULAR PACEMAKER Since previous tracing, no significant change noted ABNORM AL RHYTHM ECG PREVIOUS TRACING : 04/05/2016 15.36 DOCTOR: Rozina Workman Interpretating Date/Time 07/25/2016 13:51:06
== END 2016-07-24 22:18 | disposition home or self-care (01) ==
LOC: NEPC 18:32
DX: R42 Dizziness and giddiness (principal); N18.9 Chronic kidney disease, unspecified; I12.9 Hypertensive chronic kidney disease with stage 1 through stage 4 chronic kidney disease, or unspecified chronic kidney disease; E78.5 Hyperlipidemia, unspecified; K21.9 Gastro-esophageal reflux disease without esophagitis; E03.9 Hypothyroidism, unspecified; Z95.0 Presence of cardiac pacemaker; Z79.01 Long term (current) use of anticoagulants
CPT/HCPCS: 70450; 80048; 81001; 85025; 85610; 85730; 93005; 99284; J7040

== ENCOUNTER 2016-10-13 02:02 | Observation (INO) | payer MEDICARE, OTHER ==
[~2016-10-13 02:02] MED LIST changes: +MECL-62 PO
[2016-10-13 02:03] VITALS: BP 153/76; PULSE 54; RESP 16; TEMP 97.9; O2SAT 96
--- NOTE | 2016-10-13 02:25 | PD ---
HPI Chief Complaint: Chest Pain Time Seen by Provider: 02:15 Travel History International Travel<30 days: No Contact w/Intl Traveler<30days: No Traveled to known affect area: No History of Present Illness HPI 86-year-old male complains of chest pain. Patient states that the pain started about 2 days ago and has been intermittent since then. Patient states that the chest pain substernal pressure aching pain without radiation. Patient denies palpitation nausea vomiting diaphoresis. Patient states that the chest pain is not associated with exertion. Patient denies any coughing congestion fever chills. Patient has history hypertension, hyperlipidemia. Patient denies history of diabetes. Patient is a nonsmoker. Patient denies family history of heart disease. Patient has history of bradycardia status post pacemaker placement. Patient states that she probably had stress test done about more than a year ago. Patient's fiscal agent Dr. Erickson. On a scale of 1-10 the pain is a 5. PFSH Past Medical History Hx Anticoagulant Therapy: Yes Arthritis: Yes (FEET) Autoimmune Disease: No Heart Rhythm Problems: Yes (BRADYCARDIA) Cancer: No Cardiac Catheterization: No Cardiovascular Problems: Yes (PACEMAKER) High Cholesterol: No Congestive Heart Failure: No Diabetes: No Diminished Hearing: No Endocrine: Yes Gastrointestinal Disorders: No GERD: Yes Genitourinary: Yes Hypertension: Yes Immune Disorder: No Implanted Vascular Access Dvce: Yes Musculoskeletal: Yes Neurologic: No Psychiatric: No Reproductive: No Respiratory: No Immunizations Current: Yes Sickle Cell Disease: No Thyroid Disease: Yes (HYPO) Past Surgical History Abdominal Surgery: Yes (INGUINAL HERNIA REPAIR-KIRAN) Body Medical Devices: PACE MAKER Cardiac Surgery: Yes (pacer insertion) Coronary Artery Bypass Graft: No Ear Surgery: No Endocrine Surgery: No Eye Surgery: No Genitourinary Surgery: Yes (TURP 1994) Pacemaker: Yes ([employer] [id number] SERIAL#[id number] IMPLANTED 11 NOV 2010) Prostatectomy: Yes (TURP) Thoracic Surgery: No Other Surgery: Yes Social History Alcohol Use: No Tobacco Use: No (never) Substance Use: No Allergies-Medications (Allergen,Severity, Reaction): Coded Allergies: No Known Allergies (Verified , 10/13/16) Reported Meds & Prescriptions Reported Meds & Active Scripts Active Reported Cosopt Opth Drops (Dorzolamide-Timolol Opth Drops) 22.3-6.8 Mg/Ml Soln 1 Drop EACH EYE BID Atorvastatin (Atorvastatin Calcium) 20 Mg Tab 20 Mg PO HS Pantoprazole (Pantoprazole Sodium) 40 Mg Tab 40 Mg PO DAILY Nifedipine ER (Nifedipine) 90 Mg Tab 90 Mg PO DAILY Metoprolol Tartrate 50 Mg Tab 50 Mg PO BID Losartan (Losartan Potassium) 100 Mg Tab 100 Mg PO DAILY Isosorbide Mononitrate ER (Isosorbide Mononitrate) 30 Mg Rickey 30 Mg PO DAILY Levothyroxine (Levothyroxine Sodium) 75 Mcg Tab 75 Mcg PO DAILY Plavix (Clopidogrel Bisulfate) 75 Mg Tab 75 Mg PO DAILY Ranexa ER 12 HR (Ranolazine) 500 Mg Tab 500 Mg PO BID Review of Systems General / Constitutional: No: Fever Eyes: No: Visual changes HENT: No: Headaches Cardiovascular: Positive: Chest Pain or Discomfort Respiratory: No: Shortness of Breath Gastrointestinal: No: Abdominal Pain Genitourinary: No: Dysuria Musculoskeletal: No: Pain Skin: No Rash Neurologic: No: Weakness Psychiatric: No: Depression Endocrine: No: Polydipsia Hematologic/Lymphatic: No: Easy Bruising Physical Exam Narrative GENERAL: Well-nourished, well-developed patient. SKIN: Focused skin assessment warm/dry. HEAD: Normocephalic. EYES: No scleral icterus. No injection or drainage. NECK: Supple, trachea midline. No JVD or lymphadenopathy. CARDIOVASCULAR: Regular rate and rhythm without murmurs, gallops, or rubs. RESPIRATORY: Breath sounds equal bilaterally. No accessory muscle use. GASTROINTESTINAL: Abdomen soft, non-tender, nondistended. MUSCULOSKELETAL: No cyanosis, or edema. BACK: Nontender without obvious deformity. No CVA tenderness. Neurologic exam normal. Data Data Last Documented VS Vital Signs Date Time Temp Pulse Resp B/P Pulse Ox O2 Delivery O2 Flow Rate FiO2 10/13/16 02:30 18 99 Room Air 10/13/16 02:03 97.9 54 153/76 Orders Electrocardiogram (10/13/16 02:21) Complete Blood Count With Diff (10/13/16 02:21) Comprehensive Metabolic Panel (10/13/16 02:21) Creatine Kinase (Cpk) (10/13/16 02:21) Troponin I (10/13/16 02:21) B-Type Natriuretic Peptide (10/13/16 02:21) Prothrombin Time / Inr (Pt) (10/13/16 02:21) Act Partial Throm Time (Ptt) (10/13/16 02:21) Urinalysis - C+S If Indicated (10/13/16 02:21) Chest, Single Ap (10/13/16 02:21) Iv Access Insert/Monitor (10/13/16 02:21) Ecg Monitoring (10/13/16 02:21) Oximetry (10/13/16 02:21) Labs Laboratory Tests Test 10/13/16 02:20 White Blood Count 4.8 TH/MM3 Red Blood Count 4.22 MIL/MM3 Hemoglobin 13.0 GM/DL Hematocrit 37.9 % Mean Corpuscular Volume 89.8 FL Mean Corpuscular Hemoglobin 30.9 PG Mean Corpuscular Hemoglobin 34.4 % Concent Red Cell Distribution Width 15.1 % Platelet Count 277 TH/MM3 Mean Platelet Volume 8.2 FL Neutrophils (%) (Auto) 61.6 % Lymphocytes (%) (Auto) 20.9 % Monocytes (%) (Auto) 12.7 % Eosinophils (%) (Auto) 3.9 % Basophils (%) (Auto) 0.9 % Neutrophils # (Auto) 3.0 TH/MM3 Lymphocytes # (Auto) 1.0 TH/MM3 Monocytes # (Auto) 0.6 TH/MM3 Eosinophils # (Auto) 0.2 TH/MM3 Basophils # (Auto) 0.0 TH/MM3 CBC Comment DIFF FINAL Differential Comment Prothrombin Time 11.3 SEC Prothromb Time International 1.0 RATIO Ratio Activated Partial 25.4 SEC Thromboplast Time MDM Medical Decision Making Medical Screen Exam Complete: Yes Emergency Medical Condition: Yes Interpretation(s) 2:25 AM. EKG shows pacer rhythm. Last Impressions Chest X-Ray 10/13/16220 Signed Impressions: Service Date/Time: Thursday, October 13, 2016 02:17 - CONCLUSION: No acute cardiopulmonary disease. Heron Sierra MD 3:29 AM. CBC within normal limit. BUN 26. Creatinine 1.56. GFR 51. Cardiac enzymes are normal. Differential Diagnosis Differential diagnosis including angina, UT, PE, pneumothorax. Narrative Course 86-year-old male with chest pain. Patient's on Plavix. Patient will be admitted to the chest pain center. Diagnosis Primary Impression: Chest pain Qualified Code: R07.9 - Chest pain, unspecified type Additional Impression: Chronic kidney disease Qualified Code: N18.3 - Stage 3 chronic kidney disease Admitting Information Admitting Physician Requests: Juliano Bernal MD Oct 13, 2016 02:25
[2016-10-13 02:30] VITALS: RESP 18; O2SAT 99
[2016-10-13 02:45] LABS: BASOPHIL % 0.9 % (0.0-2.0); EOSINOPHIL # 0.2 TH/MM3 (0-0.4); EOSINOPHIL % 3.9 % (0.0-4.0); HEMATOCRIT 37.9 % (39.0-51.0); HEMO FLAGS DIFF FINAL; LYMPH % 20.9 % (9.0-44.0); MEAN CELL VOLUME 89.8 FL (80.0-100.0); MEAN CORPUSCULAR HEMOGLOBIN 30.9 PG (27.0-34.0); MEAN CORPUSCULAR HGB CONC 34.4 % (32.0-36.0); MONO % 12.7 % (0.0-8.0); NEUT % 61.6 % (16.0-70.0); PLATELET COUNT 277 TH/MM3 (150-450); RED BLOOD COUNT 4.22 MIL/MM3 (4.50-5.90); RED CELL DISTRIBUTION WIDTH 15.1 % (11.6-17.2); WHITE BLOOD COUNT 4.8 TH/MM3 (4.0-11.0)
--- NOTE | 2016-10-13 02:45 | RADRPT ---
EXAM DATE/TIME: 10/13/2016 02:17 [facility] COMPARISON: CHEST SINGLE AP, August 29, 2015, 22:15. CHEST SINGLE AP, April 05, 2016, 9:42. INDICATIONS : Chest pain. MEDICAL HISTORY : Cerebrovascular disease. SURGICAL HISTORY : Pacemaker. ENCOUNTER: Initial ACUITY: 2 days PAIN SCORE: 5/10 LOCATION: Bilateral chest FINDINGS: A single view of the chest demonstrates the lungs to be symmetrically aerated without evidence of mas s, infiltrate or effusion. Atherosclerotic changes are again noted in the aorta. The left subclavian AV sequential transvenous pacer remains in place. There is a mild scoliosis. The cardiomediastinal c ontours are unremarkable. Osseous structures are intact. CONCLUSION: No acute cardiopulmonary disease. Heron Sierra MD on October 13, 2016 at 2:43 Board Certified Radiologist. This report was verified electronically.
[2016-10-13 02:51] LABS: APTT (PATIENT) 25.4 SEC (24.3-30.1); PROTHROMBIN TIME - PATIENT 11.3 SEC (9.8-11.6)
[2016-10-13 03:28] LABS: ALKALINE PHOSPHATASE 147 U/L (45-117); ALT (GPT) 26 U/L (12-78); ANION GAP 10 MEQ/L (5-15); AST (GOT) 41 U/L (15-37); BICARBONATE 23.1 MEQ/L (21.0-32.0); BLOOD UREA NITROGEN 26 MG/DL (7-18); CHLORIDE 105 MEQ/L (98-107); CREATINE KINASE 190 U/L (39-308); GLOMERULAR FILTRATION RATE 51 ML/MIN (>89); SODIUM (NA) 138 MEQ/L (136-145); TOTAL BILIRUBIN ADULT 0.4 MG/DL (0.2-1.0)
[2016-10-13] MEDS ORDERED: ACETAMINOPHEN 500 MG CPLT PO PRN (03:45)
[2016-10-13] MEDS ORDERED: ONDANSETRON HCL 4 MG/2 ML VIAL IV PRN (03:45)
[2016-10-13] MEDS ORDERED: SODIUM CHLORIDE 0.9% FLUSH 10 ML FLUSH IV FLUSH PRN (03:45)
[2016-10-13] MEDS ORDERED: ASPIRIN 81 MG CHEW TAB CHEW ONE (04:00)
[2016-10-13 05:21] VITALS: BP 145/75; PULSE 55; RESP 20; TEMP 97.5; O2SAT 96
[2016-10-13 05:33] VITALS: PULSE 49
[2016-10-13 06:14] LABS: CREATINE KINASE 155 U/L (39-308)
[2016-10-13 06:28] LABS: CKMB 1.9 NG/ML (0.5-3.6)
[2016-10-13 07:45] LABS: CREATINE KINASE 127 U/L (39-308)
[2016-10-13 07:50] VITALS: BP 146/71; PULSE 50; RESP 18; TEMP 97.7; O2SAT 97
[2016-10-13 08:00] VITALS: PULSE 49
[2016-10-13] MEDS ORDERED: SODIUM CHLORIDE 0.9% FLUSH 10 ML FLUSH IV FLUSH SCH (09:00)
--- NOTE | 2016-10-13 09:21 | HHI.HP ---
[facility] Primary Care Physician Yoel Alvarado M.D. Chief Complaint Chest pain 1 History of Present Illness 86-year-old male with history of hypertension, hyperlipidemia, and pacemaker presents to the ER for further evaluation of chest pain. Onset 2 days. Location left anterior chest. Characterized as a "gas pain, not a hard pain." No radiation of pain. Duration couple hours. After a couple hours took x1 nitro tablet with relieve in 4- mins. No known precipitating factors. Second episode of chest discomfort the following day, nitroglycerin did not relieve pain therefore decided to come to ER. No associated symptoms of nausea, vomiting, diaphoresis, or shortness of breath. No particular movements or position may pain better or worse. It did not hurt to take a deep breath. Follows with Dr. Erickson, believes he had a stress test one year ago. No current chest pain or pressure. Chest pain-free overnight. Review of Systems General: No fatigue,weakness, fever, chills, recent illness, or change in appetite. Has been in his general state of health. HEENT: No VITALE, no vision changes, no dysphasia CV: As stated above. Denies any current chest pain or pressure. RESP: No SOB, cough, wheeze, or history of asthma. GI: No nausea, vomiting, bowel changes, diarrhea, constipation, pain, or blood in the stool. No unintentional weight gain or weight loss : No dysuria EXT: No lower leg edema MS: No discomfort or change in ROM, ambulates independently NEURO: No change in memory, difficulty with balance, motor/sensory deficits SKIN: No rashes, no concerning lesions Past Family Social History Allergies: Coded Allergies: No Known Allergies (Verified , 10/13/16) Past Medical History Hypertension, hyperlipidemia, GERD, BPH, hypothyroidism, DJD, arthritis, SVT, symptomatic bradycardia pacemaker placed 2010 Past Surgical History Pacemaker-2010 Reported Medications Active Reported Cosopt Opth Drops (Dorzolamide-Timolol Opth Drops) 22.3-6.8 Mg/Ml Soln 1 Drop EACH EYE BID Atorvastatin (Atorvastatin Calcium) 20 Mg Tab 20 Mg PO HS Pantoprazole (Pantoprazole Sodium) 40 Mg Tab 40 Mg PO DAILY Nifedipine ER (Nifedipine) 90 Mg Tab 90 Mg PO DAILY Metoprolol Tartrate 50 Mg Tab 50 Mg PO BID Losartan (Losartan Potassium) 100 Mg Tab 100 Mg PO DAILY Isosorbide Mononitrate ER (Isosorbide Mononitrate) 30 Mg Rickey 30 Mg PO DAILY Levothyroxine (Levothyroxine Sodium) 75 Mcg Tab 75 Mcg PO DAILY Plavix (Clopidogrel Bisulfate) 75 Mg Tab 75 Mg PO DAILY Ranexa ER 12 HR (Ranolazine) 500 Mg Tab 500 Mg PO BID Active Ordered Medications Current Medications Medications (Trade) Dose Ordered Sig/Krystal Route Start Time Stop Time Status Last Admin (Tylenol) 500 mg Q4H PRN PO 10/13/16 03:45 (Zofran Inj) 4 mg Q6H PRN IV 10/13/16 03:45 Social History Known hypertension and hyperlipidemia. No known personal coronary artery disease or diabetes. Lifelong nonsmoker. Denies any alcohol or illegal drug use. Endorses an active lifestyle. . Ambulates independently. Past cardiac testing Remembers having stress test one year ago. Follows with Dr. Erickson. Does not recall ever having cardiac catheterization. Physical Exam Vital Signs Vital Signs Date Time Temp Pulse Resp B/P Pulse Ox O2 Delivery O2 Flow Rate FiO2 10/13/16 07:50 97.7 50 18 146/71 97 10/13/16 05:33 49 10/13/16 05:21 97.5 55 20 145/75 96 10/13/16 02:30 18 99 Room Air 10/13/16 02:03 97.9 54 16 153/76 96 Room Air Physical Exam GENERAL: Alert WN, WD, NAD, pleasant, elderly male HEAD: NC, AT NECK: Supple, no masses, trachea midline CV: Patient rhythm, no murmur, rub, or gallop, no JVD, S1-S2 no S3-S4. RESP: Clear lungs throughout bilateral, no crackles, wheeze, rhonchi, symmetrical chest rise, nonlabored, able to speak in full sentences ABD: Soft, NT, ND, no masses, positive bowel tones EXT: Pulses +24, no dependent edema MS: Normal tone 4 extremities, nontender, no obvious deformities, full range of motion NEURO: CN II through CN XII grossly intact, motor strength 5/5, gait WNL PSYCH: A+O 3, pleasant affect, appropriate speech, appropriate mood and affect , insight and judgment SKIN: Normal turgor, normal texture Laboratory Laboratory Tests Test 10/13/16 10/13/16 10/13/16 02:20 05:29 07:00 White Blood Count 4.8 Red Blood Count 4.22 Hemoglobin 13.0 Hematocrit 37.9 Mean Corpuscular Volume 89.8 Mean Corpuscular Hemoglobin 30.9 Mean Corpuscular Hemoglobin 34.4 Concent Red Cell Distribution Width 15.1 Platelet Count 277 Mean Platelet Volume 8.2 Neutrophils (%) (Auto) 61.6 Lymphocytes (%) (Auto) 20.9 Monocytes (%) (Auto) 12.7 Eosinophils (%) (Auto) 3.9 Basophils (%) (Auto) 0.9 Neutrophils # (Auto) 3.0 Lymphocytes # (Auto) 1.0 Monocytes # (Auto) 0.6 Eosinophils # (Auto) 0.2 Basophils # (Auto) 0.0 CBC Comment DIFF FINAL Differential Comment Prothrombin Time 11.3 Prothromb Time International 1.0 Ratio Activated Partial 25.4 Thromboplast Time Sodium Level 138 Potassium Level 5.0 Chloride Level 105 Carbon Dioxide Level 23.1 Anion Gap 10 Blood Urea Nitrogen 26 Creatinine 1.56 Estimat Glomerular Filtration 51 Rate Random Glucose 84 Calcium Level 9.3 Total Bilirubin 0.4 Aspartate Amino Transf 41 (AST/SGOT) Alanine Aminotransferase 26 (ALT/SGPT) Alkaline Phosphatase 147 Total Creatine Kinase 190 155 127 Troponin I LESS THAN 0.02 LESS THAN 0.02 LESS THAN 0.02 B-Type Natriuretic Peptide 114 Total Protein 9.1 Albumin 4.1 Creatine Kinase MB 1.9 Result Diagram: 10/13/1621910/13/16219 Imaging Last Impressions Chest X-Ray 10/13/16220 Signed Impressions: Service Date/Time: Thursday, October 13, 2016 02:17 - CONCLUSION: No acute cardiopulmonary disease. Heron Sierra MD Course EKG AV paced Assessment and Plan Assessment and Plan #1 Atypical chest painadmitted to chest pain center. Ruled out with 3 sets of EKGs, cardiac enzymes, and monitored overnight. Seen and evaluated by Dr. Shamika Mcdaniel. Called patient's process technician, Dr. Erickson, to notify the patient's arrival to chest pain center. Spoke with Dr. Erickson nurse, who made Dr. Erickson aware of patient's arrived to [facility]. Recent stress test completed August 2015 with no signs of ischemia. Dr. Erickson okay for discharge with follow-up with in 2 weeks. Continue all home medication as previously ordered. Yarelis Velásquez Oct 13, 2016 09:21
--- NOTE | 2016-10-13 09:42 | EKG ---
Date Performed: 10/13/2016 Time Performed: 02:16:33 PTAGE: 86 years EKG: ELECTRONIC ATRIAL PACEMAKER ELECTRONIC VENTRICULAR PACEMAKER ABNORMAL RHYTHM ECG Since PREVIOUS TRACING , no significant change noted PREVIOUS TRACIN07/24/2016 19.25 DOCTOR: Shamika Mcdaniel Interpretating Date/Time 10/13/2016 09:41:59
--- NOTE | 2016-10-13 09:42 | EKG ---
Date Performed: 10/13/2016 Time Performed: 05:46:04 PTAGE: 86 years EKG: ELECTRONIC ATRIAL PACEMAKER ELECTRONIC VENTRICULAR PACEMAKER ABNORMAL RHYTHM ECG Since PREVIOUS TRACING , no significant change noted PREVIOUS TRACIN10/13/2016 02.16 DOCTOR: Shamika Mcdaniel Interpretating Date/Time 10/13/2016 09:41:47
[2016-10-13] MEDS ORDERED: NIFEdipine 90 MG SUSTAINED RELEASE TAB PO SCH (10:15)
[2016-10-13] MEDS ORDERED: DORZOLAMIDE/TIMOLOL OPTH SOLN 10 ML BTL EACH EYE SCH (10:15)
[2016-10-13] MEDS ORDERED: RANOLAZINE 500 MG EXTENDED RELEASE TAB PO SCH (10:15)
[2016-10-13] MEDS ORDERED: ISOSORBIDE MONONITRATE 30 MG TAB PO SCH (10:15)
[2016-10-13] MEDS ORDERED: LEVOTHYROXINE SODIUM 75 MCG TAB PO SCH (10:15)
[2016-10-13] MEDS ORDERED: PANTOPRAZOLE SOD 40 MG DELAYED RELEASE TAB PO SCH (10:15)
[2016-10-13] MEDS ORDERED: LOSARTAN 50 MG TAB PO SCH (10:15)
[2016-10-13] MEDS ORDERED: CLOPIDOGREL 75 MG TAB PO SCH (10:15)
[2016-10-13] MEDS ORDERED: METOPROLOL TARTRATE 50 MG TAB PO SCH (10:15)
--- NOTE | 2016-10-13 10:19 | HHI.DCPOC ---
Discharge Care Plan Diagnosis: (1) Atypical chest pain (2) HLD (hyperlipidemia) (3) HTN (hypertension) (4) Pacemaker (5) GERD (gastroesophageal reflux disease) Goals to Promote Your Health * To prevent worsening of your condition and complications * To maintain your health at the optimal level Directions to Meet Your Goals Take your medications as prescribed Follow your dietary instruction Follow activity as directed Keep your appointments as scheduled Take your immunizations and boosters as scheduled If your symptoms worsen call your PCP, if no PCP go to Urgent Care Center or Emergency Room Smoking is Dangerous to Your Health. Avoid second hand smoke Call the 24-hour hour crisis hotline for domestic abuse at Yarelis Velásquez Oct 13, 2016 10:19
--- NOTE | 2016-10-13 18:03 | EKG ---
Date Performed: 10/13/2016 Time Performed: 08:34:43 PTAGE: 86 years EKG: ELECTRONIC ATRIAL PACEMAKER ELECTRONIC VENTRICULAR PACEMAKER ABNORMAL RHYTHM ECG Since PREVIOUS TRACING , no significant change noted PREVIOUS TRACIN10/13/2016 05.46 DOCTOR: Shamika Mcdaniel Interpretating Date/Time 10/13/2016 18:02:07
[2016-10-13] MEDS ORDERED: ATORVASTATIN 20 MG TAB PO SCH (21:00)
== END 2016-10-13 11:41 | disposition home or self-care (01) ==
LOC: NEPE 02:02 → NEDA 03:34 → NEPFCDU 04:46
PROVIDERS: ADMIT Internal Medicine Cardiovascular Disease; ATTEND Internal Medicine Cardiovascular Disease
DX: R07.89 Other chest pain (principal); E78.5 Hyperlipidemia, unspecified; Z95.0 Presence of cardiac pacemaker; K21.9 Gastro-esophageal reflux disease without esophagitis; R94.31 Abnormal electrocardiogram [ECG] [EKG]; E03.9 Hypothyroidism, unspecified; N18.3 Chronic kidney disease, stage 3 (moderate); I12.9 Hypertensive chronic kidney disease with stage 1 through stage 4 chronic kidney disease, or unspecified chronic kidney disease; R00.1 Bradycardia, unspecified; N40.0 Benign prostatic hyperplasia without lower urinary tract symptoms; M19.90 Unspecified osteoarthritis, unspecified site; Z79.01 Long term (current) use of anticoagulants; Z79.899 Other long term (current) drug therapy
CPT/HCPCS: 71010; 80053; 82550; 82552; 83880; 84484; 85025; 85610; 85730; 93005; 99285; G0378

== ENCOUNTER 2018-03-11 02:40 | Observation (INO) ==
[2018-03-11 03:32] LABS: Eos # (Auto) 0.3 th/mm3 (0.0-0.4); Hematocrit 35.3 % (39.0-51.0); Hemoglobin 11.7 gm/dL (13.0-17.0); Lymph # (Auto) 0.9 th/mm3 (1.0-4.8); Lymph % (Auto) 18.1 % (9.0-44.0); Mean Corpuscular HGB Conc 33.2 % (32.0-36.0); Mean Corpuscular Hemoglobin 30.8 pg (27.0-34.0); Mean Corpuscular Volume 92.8 fL (80.0-100.0); Mono # (Auto) 0.6 th/mm3 (0.0-0.9); Mono % (Auto) 12.5 % (0.0-8.0); Neut # (Auto) 3.2 th/mm3 (1.8-7.7); Neut % (Auto) 63.4 % (16.0-70.0); Platelet Count 214 th/mm3 (150-450); Red Blood Count 3.81 mil/mm3 (4.50-5.90); Red Cell Distribution Width 14.9 % (11.6-17.2)
[2018-03-11 03:49] LABS: Albumin 3.6 g/dL (3.4-5.0); Anion Gap 8 meq/L (5-15); Aspartate Aminotransferase 19 U/L (15-37); Blood Urea Nitrogen 22 mg/dL (7-18); Calcium 8.3 mg/dL (8.5-10.1); Carbon Dioxide 24.9 meq/L (21.0-32.0); Chloride 108 meq/L (98-107); Glomerular Filtration Rate 57 mL/min (>89); Glucose,Random 90 mg/dL (74-106); Sodium 141 meq/L (136-145)
[2018-03-11 03:54] LABS: Alanine Aminotransferase 19 U/L (12-78); Alkaline Phosphatase 136 U/L (45-117); Total Protein 7.7 g/dL (6.4-8.2)
--- NOTE | 2018-03-11 03:57 | XR ---
EXAM DATE: 03/11/2018 3:32 AM EST AGE/SEX: 87 years / Male INDICATIONS: Chest pain. CLINICAL DATA: This is the patient's initial encounter. Patient reports that signs and symptoms have been present for 1 day and indicates a pain score of 7/10. MEDICAL/SURGICAL HISTORY: Hypertension. Cardiovascular disease. Pacemaker. COMPARISON: [facility] – [place] 1V SINGLE AP, 09/26/2017. . FINDINGS: There is trace left base atelectasis. No pleural effusion or pneumothorax. Heart size stable, within normal limits. Cardiac pacer again noted. CONCLUSION: Mild left base atelectasis. Electronically signed by: Daniel Walker MD Board Certified Radiologist 03/11/2018 3:55 AM EST
--- NOTE | 2018-03-11 04:47 | ED ---
HPI General Chief Complaint: Chest Pain Stated Complaint: Chest tightness, leg weakness Time Seen by Provider: 03/11/18 03:13 Source: patient Mode of arrival: ambulatory Limitations: no limitations History of Present Illness HPI narrative: 87-year-old male came to the emergency room with his with history of left-sided chest pain on and off since he today morning. Pain is dull ache in nature. No radiation of the pain. No aggravating or relieving factors identified. Vital signs are stable. Patient has a indirect sales representative and is Dr. Erickson. Patient is not sure about his last stress test. He thinks it is somewhere between 1-2 years back. No history of shortness of breath or syncopal episode. No history of diaphoresis. He does not appear to be in any distress currently. He says his pain is gone at this point. Related Data Home Medications Medication Instructions Recorded Confirmed aspirin [Aspir-Low] 81 mg PO DAILY 03/11/18 03/14/18 atorvastatin 20 mg PO DAILY 03/11/18 03/14/18 clopidogrel 75 mg PO DAILY 03/11/18 03/14/18 dorzolamide-timolol [Cosopt] 1 drp OPHTHALMIC (EYE) BID 03/11/18 03/14/18 isosorbide mononitrate DAILY 03/11/18 03/11/18 levothyroxine 75 mcg PO DAILY 03/11/18 03/14/18 losartan 100 mg PO DAILY 03/11/18 03/14/18 metoprolol tartrate 50 mg PO BID 03/11/18 03/14/18 nifedipine PO DAILY 03/11/18 pantoprazole 40 mg PO DAILY 03/11/18 03/14/18 ranolazine [Ranexa] 500 mg PO BID 03/11/18 03/14/18 Allergies Allergy/AdvReac Type Severity Reaction Status Date / Time No Known Allergies Allergy Verified 03/14/18 00:16 Review of Systems ROS: all other systems reviewed are negative [facility] Medical History Medical History Acute glaucoma (Acute) Artificial pacemaker (Acute) HTN (hypertension) (Acute) Thyroid disease (Acute) Social History Social History Substance History: No History of Abuse Second Hand Smoke Exposure: No Smoking Status: Former smoker How Often Do You Have a Drink Containing Alcohol: Never Hx Recent Travel: No Recent Travel in [facility] within the Last 8 Weeks: No Recent Out of Country Travel within the Last 8 Weeks: No Immunization History Tetanus Immunization: Unsure Exam Narrative Exam Narrative: GENERAL: Awake, alert, elderly, no obvious distress SKIN: Focused skin assessment warm/dry. HEAD: Atraumatic. Normocephalic. EYES: Pupils equal and round. No scleral icterus. No injection or drainage. ENT: No nasal bleeding or discharge. Mucous membranes pink and moist. NECK: Trachea midline. No JVD. CARDIOVASCULAR: Regular rate and rhythm. No murmur appreciated. RESPIRATORY: No accessory muscle use. Clear to auscultation. Breath sounds equal bilaterally. GASTROINTESTINAL: Abdomen soft, non-tender, nondistended. Hepatic and splenic margins not palpable. MUSCULOSKELETAL: No obvious deformities. No clubbing. No cyanosis. No edema. NEUROLOGICAL: Awake and alert. No obvious cranial nerve deficits. Motor grossly within normal limits. Normal speech. PSYCHIATRIC: Appropriate mood and affect; insight and judgment normal. Course Initial Documented Vital Signs Temperature 98.6 F 03/11/18 02:43 Pulse Rate 53 L 03/11/18 02:43 Respiratory Rate 16 03/11/18 02:43 Blood Pressure 130/61 03/11/18 02:43 Pulse Oximetry 96 03/11/18 02:43 Last Documented Vital Signs Temperature 97.9 F 03/11/18 08:00 Pulse Rate 49 L 03/11/18 08:00 Respiratory Rate 16 03/11/18 08:00 Blood Pressure 112/63 03/11/18 08:00 Pulse Oximetry 96 03/11/18 08:00 Medical Decision Making MDM Narrative Medical decision making narrative: 4:46 AM blood test results are back and within acceptable limit. Chest x-ray is negative. I put a call out to speak with the patient's indirect sales representative and discuss regarding the last stress test. 5:20 AM the indirect sales representative has not called back yet. Patient does have significant risk factors for ACS. I have admitted him to the chest pain center to be ruled out by the indirect sales representative. Medical Screen Exam Complete: Yes Emergency Medical Condition: Yes Lab Data Result diagrams: 03/11/18 03:15 03/11/18 03:15 Lab Results 03/11/18 03/11/18 03/11/18 Range/Units 03:15 03:15 05:15 WBC 5.0 (4.0-11.0) th/mm3 RBC 3.81 L (4.50-5.90) mil/mm3 Hgb 11.7 L (13.0-17.0) gm/dL Hct 35.3 L (39.0-51.0) % MCV 92.8 (80.0-100.0) fL MCH 30.8 (27.0-34.0) pg MCHC 33.2 (32.0-36.0) % RDW 14.9 (11.6-17.2) % Plt Count 214 (150-450) th/mm3 MPV 8.0 (7.0-11.0) fL Neut % (Auto) 63.4 (16.0-70.0) % Lymph % (Auto) 18.1 (9.0-44.0) % Pratt % (Auto) 12.5 H (0.0-8.0) % Eos % (Auto) 5.0 H (0.0-4.0) % Baso % (Auto) 1.0 (0.0-2.0) % Neut # (Auto) 3.2 (1.8-7.7) th/mm3 Lymph # (Auto) 0.9 L (1.0-4.8) th/mm3 Pratt # (Auto) 0.6 (0.0-0.9) th/mm3 Eos # (Auto) 0.3 (0.0-0.4) th/mm3 Baso # (Auto) 0.0 (0.0-0.2) th/mm3 WBC Differential . Differential Comment Auto diff final Sodium 141 (136-145) meq/L Potassium 4.0 (3.5-5.1) meq/L Chloride 108 H (98-107) meq/L Carbon Dioxide 24.9 (21.0-32.0) meq/L Anion Gap 8 (5-15) meq/L BUN 22 H (7-18) mg/dL Creatinine 1.41 H (0.60-1.30) mg/dL Estimated GFR 57 L (>89) mL/min Random Glucose 90 (74-106) mg/dL Calcium 8.3 L (8.5-10.1) mg/dL Total Bilirubin 0.4 (0.2-1.0) mg/dL AST 19 (15-37) U/L ALT 19 (12-78) U/L Alkaline Phosphatase 136 H (45-117) U/L Total Creatine Kinase 793 H (39-308) U/L CK-MB (CK-2) 1.4 (0.5-3.6) ng/mL CK-MB (CK-2) % 0.2 (0.0-4.0) % Troponin I Less than 0.02 L Less than 0.02 L (0.02-0.05) ng/mL Total Protein 7.7 (6.4-8.2) g/dL Albumin 3.6 (3.4-5.0) g/dL 03/11/18 Range/Units 09:15 WBC (4.0-11.0) th/mm3 RBC (4.50-5.90) mil/mm3 Hgb (13.0-17.0) gm/dL Hct (39.0-51.0) % MCV (80.0-100.0) fL MCH (27.0-34.0) pg MCHC (32.0-36.0) % RDW (11.6-17.2) % Plt Count (150-450) th/mm3 MPV (7.0-11.0) fL Neut % (Auto) (16.0-70.0) % Lymph % (Auto) (9.0-44.0) % Pratt % (Auto) (0.0-8.0) % Eos % (Auto) (0.0-4.0) % Baso % (Auto) (0.0-2.0) % Neut # (Auto) (1.8-7.7) th/mm3 Lymph # (Auto) (1.0-4.8) th/mm3 Pratt # (Auto) (0.0-0.9) th/mm3 Eos # (Auto) (0.0-0.4) th/mm3 Baso # (Auto) (0.0-0.2) th/mm3 WBC Differential Differential Comment Sodium (136-145) meq/L Potassium (3.5-5.1) meq/L Chloride (98-107) meq/L Carbon Dioxide (21.0-32.0) meq/L Anion Gap (5-15) meq/L BUN (7-18) mg/dL Creatinine (0.60-1.30) mg/dL Estimated GFR (>89) mL/min Random Glucose (74-106) mg/dL Calcium (8.5-10.1) mg/dL Total Bilirubin (0.2-1.0) mg/dL AST (15-37) U/L ALT (12-78) U/L Alkaline Phosphatase (45-117) U/L Total Creatine Kinase 786 H (39-308) U/L CK-MB (CK-2) 1.2 (0.5-3.6) ng/mL CK-MB (CK-2) % 0.2 (0.0-4.0) % Troponin I Less than 0.02 L (0.02-0.05) ng/mL Total Protein (6.4-8.2) g/dL Albumin (3.4-5.0) g/dL Imaging Data Radiologist's impression: Chest X-Ray 03/11/18 03:13 CONCLUSION: Mild left base atelectasis. ECG Data Attestation: I personally reviewed and interpreted this ECG as follows: Discharge Plan Discharge Disposition Patient Disposition: ED Admit(ED Internal Use Only) Discharge Condition Condition: Stable Discharge Order Discharge Orders: Discharge Order (Routine); Ordered 03/11/18 Ordered By: Yarelis Velásquez ED Use Only Admit Order (Routine); Ordered 03/11/18 Ordered By: eMir Lemon Physicians Team ED Provider: Meir Lemon Primary Care Provider: Freddie Alvarado Attending Provider: Shamika Mcdaniel Status ED Status: Left Department Discharge Information Discharge Date/Time: 03/11/18 06:52
[2018-03-11 07:37] LABS: Creatine Kinase 793 U/L (39-308)
[2018-03-11 07:50] LABS: CKMB Percent 0.2 % (0.0-4.0); Creatine Kinase MB 1.4 ng/mL (0.5-3.6)
--- NOTE | 2018-03-11 08:19 | P.HPCA ---
History of Present Illness Primary Care Physician: Freddie Alvarado Chief Complaint: Chest tightness History of Present Illness: 87 year old male with history of hypertension, hyperlipidemia, renal insufficiently, and pacemaker placed for symptomatic bradycardiac presents to ER for further evaluation of nonexertional chest tightness. Onset yesterday morning. Location substernal. Characterized as tightness. No radiation. No associated symptoms of nausea, vomiting, dyspnea, or diaphoresis. Duration varies, often lasting 1 hour and can occur multiple times during the day. No precipitating or relieving factors. Reports similar discomfort in the past, states cause has never been identified. Follows with Dr. Erickson and believes completing a nuclear stress testing earlier this early. No recent illness, injury, cough, or fever. Past cardiac testing Possible nuclear stress testing within one year reported to be normal. Does not recall ever having a cardiac catheterization. Social history Does not recall past LA. No known CAD or diabetes. Known hyperlipidemia and hypertension. Medical records indicated elevated troponin of 1.63 (04/23/15). Dr. Erickson consulted at that time, patient as renal insufficiency and was discharged home on medical management. . Endorses active lifestyle walking and performing aerobic activities daily. - Diagnosis (1) Atypical chest pain (2) Hypertension (3) GERD (gastroesophageal reflux disease) (4) Hyperlipidemia Review of Systems All other systems reviewed negative except as stated in HPI PMFSH - History History Provided By: Patient - Medical History Medical History: Medical History (Last Updated 03/11/18 @ 08:57 by DOE Dodd) BPH (benign prostatic hyperplasia) Bradycardia GERD (gastroesophageal reflux disease) Glaucoma Hyperlipidemia Pacemaker SVT (supraventricular tachycardia) Acute glaucoma HTN (hypertension) Thyroid disease - Social History I have reviewed the patient's Social History: Yes - Tobacco History Second Hand Smoke Exposure: No Tobacco Use In Past 30 Days: No Smoking Status: Never smoker - Alcohol History How Often Do You Have a Drink Containing Alcohol: Never - Substance Use History Substance History: No History of Abuse - Travel History History of Recent Travel: No Recent Travel in the [place] Within the Last 8 Weeks: No Recent Travel Out of the Country Within the Last 8 Weeks: No - Immunization History Tetanus Immunization: Unsure Medications and Allergies Active Medications: Active Medications Sodium Chloride (Ns Flush) 2 ml IV.FLUSH UNSCH PRN PRN Reason: FLUSH AFTER USING IV ACCESS Sodium Chloride (Ns Flush) 2 ml IV.FLUSH BID RODGER Sodium Chloride (Ns Flush) 2 ml IV.FLUSH PRN PRN PRN Reason: FLUSH AFTER USING IV ACCESS Allergies Allergy/AdvReac Type Severity Reaction Status Date / Time No Known Allergies Allergy Verified 03/11/18 02:55 Home Medications Medication Instructions Recorded Confirmed Type aspirin [Aspir-Low] 81 mg PO DAILY 03/11/18 03/11/18 History atorvastatin 20 mg PO DAILY 03/11/18 03/11/18 History clopidogrel 75 mg PO DAILY 03/11/18 03/11/18 History dorzolamide-timolol [Cosopt] 1 drp OPHTHALMIC (EYE) BID 03/11/18 03/11/18 History isosorbide mononitrate DAILY 03/11/18 03/11/18 History levothyroxine 75 mcg PO DAILY 03/11/18 03/11/18 History losartan 100 mg PO DAILY 03/11/18 03/11/18 History metoprolol tartrate 50 mg PO BID 03/11/18 03/11/18 History nifedipine PO DAILY 03/11/18 History pantoprazole 40 mg PO DAILY 03/11/18 03/11/18 History ranolazine [Ranexa] 500 mg PO BID 03/11/18 03/11/18 History Exam Vital signs: Vital Signs 03/11/18 02:43 03/11/18 02:56 03/11/18 08:00 Temperature 98.6 F 97.9 F Pulse Rate 53 L 65 52 L Respiratory Rate 16 18 16 Blood Pressure 130/61 122/64 112/63 Pulse Oximetry 96 98 96 Intake & Output 03/10/18 03/11/18 03/11/18 18:59 06:59 18:59 Weight 72.5 kg Other: Weight On Admission 72.1 kg Narrative: GENERAL: Alert WN, WD, NAD, very pleasant, -[place] elderly male HEAD: NC, AT EYES: Sclera clear, conjunctiva without injection, pupils equal and round ENT: Mucous membranes pink and moist CV: RRR, without murmur, rub, gallop, no JVD. Chest wall nontender to palpation. RESP: Clear lungs throughout bilateral, no crackles, wheeze, rhonchi, symmetrical chest rise, nonlabored, able to speak in full sentences ABD: Soft, NT, ND, no masses, positive bowel tones EXT: Pulses +2x4, no dependent edema MS: Normal tone x4 extremities, nontender, no obvious deformities, full range of motion NEURO: Motor strength 5/5 PSYCH: A+O x3, pleasant affect, appropriate speech, appropriate mood and affect , insight and judgment SKIN: Normal turgor, normal texture, no lesions, no rashes Results 03/11/18 03:15 03/11/18 03:15 Cardiac Enzymes 03/11/18 03/11/18 Range/Units 03:15 05:15 AST 19 (15-37) U/L CK-MB (CK-2) 1.4 (0.5-3.6) ng/mL Troponin I Less than 0.02 L Less than 0.02 L (0.02-0.05) ng/mL CBC 03/11/18 Range/Units 03:15 WBC 5.0 (4.0-11.0) th/mm3 RBC 3.81 L (4.50-5.90) mil/mm3 Hgb 11.7 L (13.0-17.0) gm/dL Hct 35.3 L (39.0-51.0) % Plt Count 214 (150-450) th/mm3 Neut # (Auto) 3.2 (1.8-7.7) th/mm3 Lymph # (Auto) 0.9 L (1.0-4.8) th/mm3 [place] # (Auto) 0.6 (0.0-0.9) th/mm3 Eos # (Auto) 0.3 (0.0-0.4) th/mm3 Baso # (Auto) 0.0 (0.0-0.2) th/mm3 Comprehensive Metabolic Panel 03/11/18 Range/Units 03:15 Sodium 141 (136-145) meq/L Potassium 4.0 (3.5-5.1) meq/L Chloride 108 H (98-107) meq/L Carbon Dioxide 24.9 (21.0-32.0) meq/L BUN 22 H (7-18) mg/dL Creatinine 1.41 H (0.60-1.30) mg/dL Calcium 8.3 L (8.5-10.1) mg/dL AST 19 (15-37) U/L ALT 19 (12-78) U/L Alkaline Phosphatase 136 H (45-117) U/L Total Protein 7.7 (6.4-8.2) g/dL Albumin 3.6 (3.4-5.0) g/dL Intake and Output 03/10/18 03/11/18 03/11/18 22:59 06:59 14:59 Other: Weight 72.5 kg Weight On Admission 72.1 kg - Imaging and Cardiology Imaging: Impressions Chest X-Ray 03/11/18 03:13 CONCLUSION: Mild left base atelectasis. EKG interpretations - LA, pacemaker, normal Pacemaker: normal ventricular sensing Caprini VTE Risk Assessment Caprini VTE Risk Assessment: Moderate/High Risk (score >= 2) Caprini Risk Assessment Model: Point Value = 1 Point Value = 2 Point Value = 3 Point Value = 5 Age 41-60 Minor surgery BMI > 25 kg/m2 Swollen legs Varicose veins or History of unexplained or recurrent spontaneous Oral contraceptives or hormone replacement Sepsis (< 1 month) Serious lung disease, including pneumonia (< 1 month) Abnormal pulmonary function Acute myocardial infarction Congestive heart failure (< 1 month) History of inflammatory bowel disease Medical patient at bed rest Age 61-74 Arthroscopic surgery Major open surgery (> 45 min) Laparoscopic surgery (> 45 min) Malignancy Confined to bed (> 72 hours) Immobilizing plaster cast Central venous access Age >= 75 History of VTE Family history of VTE Factor V Leiden Prothrombin [id number] Lupus anticoagulant Anticardiolipin antibodies Elevated serum homocysteine Heparin-induced thrombocytopenia Other congenital or acquired thrombophilia Stroke (< 1 month) Elective arthroplasty Hip, pelvis, or leg fracture Acute spinal cord injury (< 1 month) Prophylaxis Regimen: Total Risk Factor Score Risk Level Prophylaxis Regimen 0-1 Low Early ambulation 2 Moderate Order ONE of the following: *Sequential Compression Device (SCD) *Heparin 5000 units SQ BID 3-4 Higher Order ONE of the following medications: *Heparin 5000 units SQ TID *Enoxaparin/Lovenox 40 mg SQ daily (WT < 150 kg, CrCl > 30 mL/min) *Enoxaparin/Lovenox 30 mg SQ daily (WT < 150 kg, CrCl > 10-29 mL/min) *Enoxaparin/Lovenox 30 mg SQ BID (WT < 150 kg, CrCl > 30 mL/min) AND/OR *Sequential Compression Device (SCD) 5 or more Highest Order ONE of the following medications: *Heparin 5000 units SQ TID (Preferred with Epidurals) *Enoxaparin/Lovenox 40 mg SQ daily (WT < 150 kg, CrCl > 30 mL/min) *Enoxaparin/Lovenox 30 mg SQ daily (WT < 150 kg, CrCl > 10-29 mL/min) *Enoxaparin/Lovenox 30 mg SQ BID (WT < 150 kg, CrCl > 30 mL/min) AND *Sequential Compression Device (SCD) Assessment and Plan - Assessment (1) Atypical chest pain Code(s): R07.89 - Other chest pain Status: Acute Plan: Admitted chest pain center. ACS ruled out 3 sets of EKGs and cardiac enzymes. Seen and evaluated by Dr. Shamika Mcdaniel. Will place call to Dr. Erickson office and determine if any recent cardiac testing has been completed. Continue Ranexa and metoprolol. Dose of Imdur unknown. Updated anymore. [id number]-Return call from Dr. Erickson's office. Spoke with Dr. Dre English's nurse. Diego for discharge and follow up in 2-3 days. (2) Hypertension Code(s): I10 - Essential (primary) hypertension Status: Chronic Plan: Continue losartan and metoprolol. (3) GERD (gastroesophageal reflux disease) Code(s): K21.9 - Gastro-esophageal reflux disease without esophagitis Status: Chronic Plan: Continue Protonix. (4) Hyperlipidemia Code(s): E78.5 - Hyperlipidemia, unspecified Status: Chronic Plan: Continue atorvastatin. H&P: Quality - VTE Deep Vein Thrombosis/Pulmonary Embolism Present on Admission: Yes (2) Hypertension Qualifiers: Hypertension type: unspecified Qualified Code(s): I10 - Essential (primary) hypertension (3) GERD (gastroesophageal reflux disease) Qualifiers: Esophagitis presence: esophagitis presence not specified Qualified Code(s): K21.9 - Gastro-esophageal reflux disease without esophagitis (4) Hyperlipidemia Qualifiers: Hyperlipidemia type: unspecified Qualified Code(s): E78.5 - Hyperlipidemia, unspecified
[2018-03-11] MEDS ORDERED: Metoprolol Tartrate 50 MG Tablet PO SCH (09:00)
[2018-03-11] MEDS ORDERED: Levothyroxine 75 MCG Tablet PO SCH (09:00)
[2018-03-11] MEDS ORDERED: Ranolazine 500 MG 12HR ER Tablet PO SCH (10:00)
[2018-03-11 10:06] LABS: Creatine Kinase 786 U/L (39-308)
[2018-03-11 10:18] LABS: CKMB Percent 0.2 % (0.0-4.0); Creatine Kinase MB 1.2 ng/mL (0.5-3.6)
--- NOTE | 2018-03-11 16:47 | ECG ---
Date Performed: 03/11/2018 Time Performed: 06:30:48 PTAGE: 87 years EKG: ELECTRONIC ATRIAL PACEMAKER ELECTRONIC VENTRICULAR PACEMAKER ABNORMAL RHYTHM ECG Since PREVIOUS TRACING , no significant change noted PREVIOUS TRACIN09/25/2017 23.00 DOCTOR: Shamika Mcdaniel Interpretating Date/Time 03/11/2018 16:45:51
--- NOTE | 2018-03-11 16:57 | ECG ---
Date Performed: 03/11/2018 Time Performed: 02:55:53 PTAGE: 87 years EKG: ELECTRONIC VENTRICULAR PACEMAKER ABNORMAL RHYTHM ECG Since PREVIOUS TRACING , no significant change noted PREVIOUS TRACIN09/25/2017 23.00 DOCTOR: Shamika Mcdaniel Interpretating Date/Time 03/11/2018 16:56:11
== END 2018-03-11 10:43 | disposition home or self-care (01) ==
LOC: NEDA 02:40 → NEPE 02:40 → NEPHCDU 06:47
PROVIDERS: ADMIT Internal Medicine Interventional Cardiology; ATTEND Internal Medicine Interventional Cardiology
DX: Z95.0 Presence of cardiac pacemaker; E07.9 Disorder of thyroid, unspecified; N40.0 Benign prostatic hyperplasia without lower urinary tract symptoms; E78.5 Hyperlipidemia, unspecified; R07.89 Other chest pain; I10 Essential (primary) hypertension; Z79.82 Long term (current) use of aspirin; Z79.890 Hormone replacement therapy; K21.9 Gastro-esophageal reflux disease without esophagitis; H40.9 Unspecified glaucoma; Z79.02 Long term (current) use of antithrombotics/antiplatelets; I26.99 Other pulmonary embolism without acute cor pulmonale; Z87.891 Personal history of nicotine dependence
CPT/HCPCS: 71010; 71045; 80053; 82550; 82552; 84484; 85025; 93005; 99285; G0378